=== PATIENT | male | born 1950 | race Caucasian/White ===

== ENCOUNTER → 2020-04-15 | Outpatient (CLI) | payer MEDICARE ==
--- NOTE | 2020-04-15 17:03 | CARD ---
MR#: [id number] Date of Study: 04/15/2020 Ordering Physician: SHELLY ATKINSON, Referring Physician: SHELLY ATKINSON, Tech: Idalia Navarrete ARIEL APPROVED REPORT EXAM: Two-dimensional and M-mode echocardiogram with Doppler and color Doppler. Other Information Quality : Fair Rhythm : Atrial Fibrillation INDICATION Congestive Heart Failure 2D DIMENSIONS RVDd3.5 (2.9-3.5cm)Left Atrium(2D)5.3 (1.6-4.0cm) IVSd1.1 (0.7-1.1cm)Aortic Root(2D)3.3 (2.0-3.7cm) LVDd5.1 (3.9-5.9cm)LVOT Diameter2.0 (1.8-2.4cm) PWd1.0 (0.7-1.1cm)LVDs3.7 (2.5-4.0cm) FS (%) 28.8 %SV69.4 ml LVEF(%)55.1 (>50%) Aortic Valve AoV Peak John.143.4cm/sAoV VTI25.0cm AO Peak GR.8.2mmHgLVOT Peak John.108.6cm/s LVOT VTI 19.86cmAO Mean GR.5mmHg CHELSEA (VMAX)2.79or4ZKK (VTI)2.40cm2 Tricuspid Valve TR P. Etmeqczd550kr/sRAP [id number] TR Peak Gr.09qxVwFKTQ59osJv Pulmonary Vein S1 Rmpuadji71.3cm/sD2 Nlvdkogs39.8cm/s LEFT VENTRICLE The left ventricle is normal size. There is normal left ventricular wall thickness. The left ventricu lar systolic function is within normal range. The Ejection Fraction is 55-60%. There is borderline hy pokinesis in the basal posterior wall. RIGHT VENTRICLE The right ventricle is borderline dilated. The right ventricular systolic function is normal. ATRIA The left atrium is mildly dilated. The right atrium is mildly dilated. The interatrial septum is inta ct with no evidence for an atrial septal defect or patent foramen ovale as noted on 2-D or Doppler im aging. AORTIC VALVE The aortic valve is mildly thickened but opens well. Doppler and Color Flow revealed no significant a ortic regurgitation. There is no significant aortic valvular stenosis. MITRAL VALVE The mitral valve is calcified but opens well. Mitral annular calcification is mild. There is no evide nce of mitral valve prolapse. There is no mitral valve stenosis. Doppler and Color-flow revealed trac e mitral regurgitation. TRICUSPID VALVE The tricuspid valve is normal in structure and function. Doppler and Color Flow revealed trace to mil d tricuspid regurgitation. The PA pressure was estimated at 38 mmHg. There is no tricuspid valve sten osis. PULMONIC VALVE The pulmonic valve is not well visualized. Doppler and Color Flow revealed trace pulmonic valvular re gurgitation. There is no pulmonic valvular stenosis. GREAT VESSELS The aortic root is normal in size. The ascending aorta is mildly dilated at 3.5 cm. The IVC is normal in size and collapses >50% with inspiration. PERICARDIAL EFFUSION There is no evidence of significant pericardial effusion. Critical Notification Critical Value: No <Conclusion> The left ventricle is normal size. The left ventricular systolic function is within normal range. The Ejection Fraction is 55-60%. There is borderline hypokinesis in the basal posterior wall. Doppler and Color Flow revealed no significant aortic regurgitation. There is no significant aortic valvular stenosis. Doppler and Color-flow revealed trace mitral regurgitation. Doppler and Color Flow revealed trace to mild tricuspid regurgitation. The PA pressure was estimated at 38 mmHg. The ascending aorta is mildly dilated at 3.5 cm. Signed by : Shelly Atkinson MD Electronically Approved : 04/15/2020 17:02:30
== END ==
LOC: ECHO 12:43
PROVIDERS: ATTEND Internal Medicine Cardiovascular Disease
DX: I08.3 Combined rheumatic disorders of mitral, aortic and tricuspid valves (principal); I50.32 Chronic diastolic (congestive) heart failure
CPT/HCPCS: 93306